=== PATIENT | female | born 1960 | race Caucasian/White ===

== ENCOUNTER 2019-02-02 16:14 | Emergency (ER) | payer BC, SELFPAY ==
[2019-02-02 16:18] VITALS: BP 126/86; PULSE 95; RESP 16; O2SAT 95; BMI 19.3
--- NOTE | 2019-02-02 16:44 | DI.RAD.S_ITS ---
PROCEDURE: XR CHEST 2V INDICATIONS: chest and back pain from fall TECHNIQUE: 2 views of the chest were acquired. COMPARISON: None. FINDINGS: Surgical changes and devices: None. Lungs and pleura: Lungs are clear. No pleural effusions or pneumothorax. Mediastinum: Mediastinal contours are normal. Heart size is normal. Bones and chest wall: No suspicious bony abnormalities. Soft tissues appear unremarkable. IMPRESSION: No acute process. Dictated by: Michelle Salguero M.D. on 02/02/2019 at 15:59 Approved by: Michelle Salguero M.D. on 02/02/2019 at 15:59
--- NOTE | 2019-02-02 18:01 | ED.FALL ---
HPI - Fall <AMBER Walters - Last Filed: 02/02/19 22:07> General Chief Complaint: Fall Stated Complaint: fall week and half ago, left side pain Time Seen by Provider: 02/02/19 17:35 Source: patient Mode of arrival: ambulatory Limitations: no limitations History of Present Illness HPI Narrative: 58-year-old female with a history of low blood sugar episodes, presents emergency department after recently from [place] complaining of having an episode of low blood sugar and falling on her couch hitting her left side. His that she has multiple blood sugar up the she usually eats something and feels much better. States that since the episode she has felt 6/10 aching left-sided pain that is worse with movement and inspiration, associated vomiting whenever she tries to eat anything. Patient states she has had multiple episodes like this in the past and has been admitted to the hospital since then, states she has had to have parental nutrition because she has been unable to eat, states this feels similar. Also states that no one was able to figure out what was causing this and that spontaneously resolved. Patient denies syncope, headaches, neck pain, chest pain, shortness of breath, change of bowel or bladder, dysuria, swelling in the legs, or dizziness. Patient denies drug or alcohol use. MD complaint: fall Fall from: standing Place fall occurred: home Loss of consciousness: none Prolonged down time: no Related Data Previous Rx's Medication Instructions Recorded cephalexin 500 mg PO BID #14 cap 02/02/19 fluconazole 100 mg PO DAILY 14 Days #14 tab 02/02/19 Allergies Allergy/AdvReac Type Severity Reaction Status Date / Time aspirin Allergy Verified 02/02/19 16:18 Penicillins Allergy Verified 02/02/19 16:18 Review of Systems <AMBER Walters - Last Filed: 02/02/19 22:07> Review of Systems REVIEW OF SYSTEMS: GENERAL: Complains of 20 lb weight loss in the past 3 weeks., see HPI a HENT: Complains of sore throat, see HPI. EYES: No loss of vision, double vision, eye pain, or irritation. CARDIOVASCULAR: No chest pain, palpitations, edema, syncope, or orthopnea. RESPIRATORY: No shortness of breath, cough, or wheeze. GASTROINTESTINAL: Complains of nausea and vomiting, see HPI. GENITOURINARY: No flank pain, urinary incontinence, hesitancy, frequency, or dysuria. MUSCULOSKELETAL: No pain, weakness, or deformities. INTEGUMENTARY: No rash, lesions, or pruritus. NEURO: No numbness, tingling, memory loss, confusion, or headaches. PSYCH: No behavior or mood changes. ENDOCRINOLOGY: No hair loss of temperature intolerance. HEMATOLOGY: No easy bruising. LYMPHATIC: No lymphadenopathy. Exam <KeylaAMBER Gregory - Last Filed: 02/02/19 22:07> Initial Vital Signs Initial Vital Signs: Vital Signs Pulse Rate 95 H 02/02/19 16:18 Respiratory Rate 16 02/02/19 16:18 Blood Pressure 126/86 02/02/19 16:18 Pulse Oximetry 95 02/02/19 16:18 PHYSICAL EXAMINATION: GENERAL: Patient appears thin, alert, and cooperative Answers questions promptly and appropriately. Vital signs noted. HENT: Normocephalic, atraumatic. Oral mucosa and pharynx is erythematous, white thick discharge appears on tongue and the back of throat which is assumed to be thrush. EYES: Conjunctiva pink, sclera white, no periorbital swelling. LYMPH: No lymphadenopathy. CHEST: Normal to inspection and without deformities. No tenderness with palpation to ribcage. CARDIOVASCULAR: S1 and S2 sounds normal. Regular rate and rhythm, no murmurs, clicks, or bruits. No pedal edema. RESPIRATORY: Normal respiratory rate, trachea midline, airway patent. No stridor, nasal flaring or accessory muscle use. Lungs are clear in all pabon without wheeze, rhonchi, or crackles. GASTROINTESTINAL: Bowel sounds normoactive. Epigastric pain with deep palpation, no masses palpated, no rebound tenderness, no bruising or erythema. On rectal exam no hemorrhoids or masses visualized are felt, Hemoccult blood test was negative with minimal stool. MUSCULOSKELETAL: Normal gait and coordination. Equal tone and mass bilaterally. EXTREMITIES: CMS intact. Moves all extremities. SKIN: Warm, dry, soft, appropriate color for ethnicity. No lesions, rashes, or wounds. NEURO: Alert and Oriented X 3. No ataxia, or sensory deficits, or cognitive issues. PSYCH: Flat affect and mood. <Luke Quintero MD - Last Filed: 02/02/19 22:35> Initial Vital Signs Initial Vital Signs: Vital Signs Pulse Rate 95 H 02/02/19 16:18 Respiratory Rate 16 02/02/19 16:18 Blood Pressure 126/86 02/02/19 16:18 Pulse Oximetry 95 02/02/19 16:18 PFSH <AMBER Walters - Last Filed: 02/02/19 22:07> Medical History Chronic vomiting (Acute) Thrush (Acute) Social History Smoking Status: Never smoker Social History Smoking Status: Never smoker Course <AMBER Walters - Last Filed: 02/02/19 22:07> Course Narrative: The course of the visit on the patient revealed more past medical history each time. She states that she had a colonoscopy in July and small polyps removed. She also states that her doctors found a small mass in her left lung that they have been biopsying without any diagnosis. Additionally see states she has been treated for thrush for the past 3 years but does not like to take her medication as she feels nauseated. Patient also states she has Zofran and Reglan at home but has not been using it for nausea. She has had 2 blood transfusions in the past for anemia of unknown cause, and has been told that her renal function has been low in the past. Patient and sitting at the bedside are talking about leaving to go back to [place] due to health problems. At this time patient also asked for narcotic medication for chronic pain, however her states that she is being followed by a pain specialist and he is handling the narcotic medication. Both myself and DR. Quintero discuss the extreme importance of follow-up for colonoscopy with the patient. Since patient has had a hard time swallowing medications an IV dose of Rocephin was given for urinary tract infection and she was sent home with pills, patient reported that her allergy to penicillins was a rash when she was 4 years old and denies anaphylaxis. Orders Ordered: ED Orders 02/02/19 16:44 CXR [XR chest 2V] Stat 02/02/19 18:15 Complete Blood Count AUTO DIFF Stat Comprehensive Metabolic Panel Stat Ethanol (ETOH) Stat Lipase Stat Thyroid Stimulating Hormone Stat 02/02/19 18:25 Urine Culture Stat Urine Microscopic Stat 02/02/19 18:58 CT abdomen pelvis wo con Stat Discontinued Medications Acetaminophen (Tylenol) 650 mg PO NOW ONE Stop: 02/02/19 18:40 Last Admin: 02/02/19 18:44 Dose: Not Given Fluconazole (Diflucan) 100 mg PO NOW ONE Stop: 02/02/19 20:48 Last Admin: 02/02/19 21:07 Dose: 100 mg Hydromorphone HCl (Dilaudid) 0.5 mg IV NOW ONE Stop: 02/02/19 20:17 Last Admin: 02/02/19 20:23 Dose: 0.5 mg Hydromorphone HCl (Dilaudid) 0.5 mg IV NOW ONE Stop: 02/02/19 21:49 Last Admin: 02/02/19 21:50 Dose: 0.5 mg Sodium Chloride (Normal Saline 0.9%) 1,000 mls @ 150 mls/hr IV CONT ARIELLE Last Infusion: 02/02/19 21:51 Dose: 0 mls/hr Infusion: 02/02/19 20:56 Dose: 999 mls/hr Infusion: 02/02/19 20:16 Dose: 999 mls/hr Admin: 02/02/19 18:40 Dose: 150 mls/hr Ceftriaxone Sodium/Dextrose (Rocephin) 1 gm in 50 mls @ 100 mls/hr IV NOW ONE Stop: 02/02/19 21:18 Last Infusion: 02/02/19 21:23 Dose: 0 mls/hr Admin: 02/02/19 20:56 Dose: 100 mls/hr Sodium Chloride (Normal Saline 0.9%) 1,000 mls @ 1,000 mls/hr IV BOLUS ONE Stop: 02/02/19 21:46 Last Infusion: 02/02/19 21:50 Dose: 0 mls/hr Admin: 02/02/19 20:56 Dose: 1,000 mls/hr Ondansetron HCl (Zofran) 4 mg IV NOW ONE Stop: 02/02/19 18:40 Last Admin: 02/02/19 18:44 Dose: 4 mg Pantoprazole Sodium (Protonix) 40 mg IV NOW ONE Stop: 02/02/19 18:59 Last Admin: 02/02/19 19:28 Dose: 40 mg Reevaluation(s) Reevaluation #1: Patient feeling slightly better after fluids and pain medication. Consultations Consultation #1: Patient staffed with Dr. Quintero who also evaluated the patient at the bedside. Vital Signs - 8 hr 02/02/19 16:18 02/02/19 18:30 02/02/19 19:36 Temperature 98.5 F Pulse Rate 95 H 115 H 115 H Respiratory Rate 16 11 L 14 Blood Pressure 126/86 Blood Pressure [Left Arm] 149/89 H 154/84 H Pulse Oximetry 95 100 100 02/02/19 20:50 02/02/19 22:05 Temperature Pulse Rate 110 H 108 H Respiratory Rate 14 14 Blood Pressure 162/86 H Blood Pressure [Left Arm] 166/87 H Pulse Oximetry 100 100 <Luke Quintero MD - Last Filed: 02/02/19 22:35> Orders Ordered: ED Orders 02/02/19 16:44 CXR [XR chest 2V] Stat 02/02/19 18:15 Complete Blood Count AUTO DIFF Stat Comprehensive Metabolic Panel Stat Ethanol (ETOH) Stat Lipase Stat Thyroid Stimulating Hormone Stat 02/02/19 18:25 Urine Culture Stat Urine Microscopic Stat 02/02/19 18:58 CT abdomen pelvis wo con Stat Discontinued Medications Acetaminophen (Tylenol) 650 mg PO NOW ONE Stop: 02/02/19 18:40 Last Admin: 02/02/19 18:44 Dose: Not Given Fluconazole (Diflucan) 100 mg PO NOW ONE Stop: 02/02/19 20:48 Last Admin: 02/02/19 21:07 Dose: 100 mg Hydromorphone HCl (Dilaudid) 0.5 mg IV NOW ONE Stop: 02/02/19 20:17 Last Admin: 02/02/19 20:23 Dose: 0.5 mg Hydromorphone HCl (Dilaudid) 0.5 mg IV NOW ONE Stop: 02/02/19 21:49 Last Admin: 02/02/19 21:50 Dose: 0.5 mg Sodium Chloride (Normal Saline 0.9%) 1,000 mls @ 150 mls/hr IV CONT ARIELLE Last Infusion: 02/02/19 21:51 Dose: 0 mls/hr Infusion: 02/02/19 20:56 Dose: 999 mls/hr Infusion: 02/02/19 20:16 Dose: 999 mls/hr Admin: 02/02/19 18:40 Dose: 150 mls/hr Ceftriaxone Sodium/Dextrose (Rocephin) 1 gm in 50 mls @ 100 mls/hr IV NOW ONE Stop: 02/02/19 21:18 Last Infusion: 02/02/19 21:23 Dose: 0 mls/hr Admin: 02/02/19 20:56 Dose: 100 mls/hr Sodium Chloride (Normal Saline 0.9%) 1,000 mls @ 1,000 mls/hr IV BOLUS ONE Stop: 02/02/19 21:46 Last Infusion: 02/02/19 21:50 Dose: 0 mls/hr Admin: 02/02/19 20:56 Dose: 1,000 mls/hr Ondansetron HCl (Zofran) 4 mg IV NOW ONE Stop: 02/02/19 18:40 Last Admin: 02/02/19 18:44 Dose: 4 mg Pantoprazole Sodium (Protonix) 40 mg IV NOW ONE Stop: 02/02/19 18:59 Last Admin: 02/02/19 19:28 Dose: 40 mg Vital Signs - 8 hr 02/02/19 16:18 02/02/19 18:30 02/02/19 19:36 Temperature 98.5 F Pulse Rate 95 H 115 H 115 H Respiratory Rate 16 11 L 14 Blood Pressure 126/86 Blood Pressure [Left Arm] 149/89 H 154/84 H Pulse Oximetry 95 100 100 02/02/19 20:50 02/02/19 22:05 Temperature Pulse Rate 110 H 108 H Respiratory Rate 14 14 Blood Pressure 162/86 H Blood Pressure [Left Arm] 166/87 H Pulse Oximetry 100 100 [facility] - Fall <AMBER Walters - Last Filed: 02/02/19 22:07> Medical Records Attestation: I reviewed the patient's medical records. Lab Data Attestation: I reviewed the patient's lab results. Result diagrams: 02/02/19 18:15 02/02/19 18:15 Lab Results 02/02/19 02/02/19 02/02/19 Range/Units 18:15 18:15 18:15 WBC 16.0 H (4.5-11.0) X10^3/uL RBC 3.25 L (4.0-5.2) X10^6/uL Hgb 10.4 L (12.0-16.0) g/dL Hct 32.3 L (36-46) % MCV 99.6 (80-100) fL MCH 32.1 (26-34) PG MCHC 32.3 (30-36) % RDW 12.9 (11.6-14.8) % Plt Count 572 H (150-400) X10^3/uL Neut % (Auto) 94.9 H (50-75) % Lymph % (Auto) 3.3 L (25-40) % [place] % (Auto) 1.7 L (3-14) % Eos % (Auto) 0.0 L (2-4) % Baso % (Auto) 0.1 (0-2) % Neut # (Auto) 25628 H (9019-5463) /uL Lymph # (Auto) 500 L (5516-8726) /uL [place] # (Auto) 300 (0-900) /uL Eos # (Auto) 0 (0-450) /uL Baso # (Auto) 0 (0-100) /uL Sodium 143 (137-145) mmol/L Potassium 4.2 (3.4-5.1) mmol/L Chloride 105 (98-107) mmol/L Carbon Dioxide 14 L (22-32) mmol/L BUN 32 H (7-17) mg/dL Creatinine 1.80 H (0.52-1.04) mg/dL Estimated GFR 28.7 L (>60) mL/min BUN/Creatinine Ratio 17.8 (6-22) Glucose 177 H (80-110) mg/dL Calcium 9.7 (8.4-10.2) mg/dL Total Bilirubin 0.5 (0.2-1.3) mg/dL AST 15 (14-36) IU/L ALT 17 (9-52) IU/L Alkaline Phosphatase 600 H (38-126) U/L Total Protein 7.8 (6.3-8.2) g/dL Albumin 3.7 (3.5-5.0) g/dL Globulin 4.1 (1.7-4.1) g/dL Albumin/Globulin Ratio 0.9 L (1.0-2.8) Lipase 265 (23-300) U/L Urine RBC (0-5/HPF) Urine WBC (0-5/HPF) Urine Bacteria (None) Ur Culture Indicated? Ethyl Alcohol < 10 mg/dL 02/02/19 Range/Units 18:25 WBC (4.5-11.0) X10^3/uL RBC (4.0-5.2) X10^6/uL Hgb (12.0-16.0) g/dL Hct (36-46) % MCV (80-100) fL MCH (26-34) PG MCHC (30-36) % RDW (11.6-14.8) % Plt Count (150-400) X10^3/uL Neut % (Auto) (50-75) % Lymph % (Auto) (25-40) % [place] % (Auto) (3-14) % Eos % (Auto) (2-4) % Baso % (Auto) (0-2) % Neut # (Auto) (2351-5612) /uL Lymph # (Auto) (1153-1844) /uL [place] # (Auto) (0-900) /uL Eos # (Auto) (0-450) /uL Baso # (Auto) (0-100) /uL Sodium (137-145) mmol/L Potassium (3.4-5.1) mmol/L Chloride (98-107) mmol/L Carbon Dioxide (22-32) mmol/L BUN (7-17) mg/dL Creatinine (0.52-1.04) mg/dL Estimated GFR (>60) mL/min BUN/Creatinine Ratio (6-22) Glucose (80-110) mg/dL Calcium (8.4-10.2) mg/dL Total Bilirubin (0.2-1.3) mg/dL AST (14-36) IU/L ALT (9-52) IU/L Alkaline Phosphatase (38-126) U/L Total Protein (6.3-8.2) g/dL Albumin (3.5-5.0) g/dL Globulin (1.7-4.1) g/dL Albumin/Globulin Ratio (1.0-2.8) Lipase (23-300) U/L Urine RBC 5-10/hpf H (0-5/HPF) Urine WBC 10-30/hpf H (0-5/HPF) Urine Bacteria Many (>30) H (None) Ur Culture Indicated? Specimen cultured Ethyl Alcohol mg/dL Urine Dip Bedside Urine Glucose Negative Bedside Urine Bilirubin - Negative Bedside Urine Ketone ++ 40 Urine Specific [place] 1.025 Bedside Urine Occult Blood +/- Bedside Urine pH 5.0 Bedside Urine Protein + 30 Bedside Urine Urobilinogen +/- 1mg Bedside Urine Nitrite - Negative Bedside Urine Leukocytes ++ [address] scan - abdomen: Radiologist's impression: [address] [address] [address] Scan Report Signed Patient: Adeline Rogers EMR#: [id number] : 8Acct:[id number] Age/Sex: 58 / FDate of Service: 02/02/19 Loc: ED Accession Number: [id number] Procedure: CT abdomen pelvis wo con Ordering Provider: Keyla Iraheta PROCEDURE: CT ABDOMEN PELVIS WO CON INDICATIONS: LUQ, epigastric pain x 1.5 wks. TECHNIQUE: Noncontrast 5 mm thick sections acquired from the diaphragms to the symphysis. 5 mm coronal and sagittal reformats were then performed. For radiation dose reduction, the following was used: automated exposure control, adjustment of mA and/or kV according to patient size. COMPARISON: None. FINDINGS: Image quality: Excellent. ABDOMEN: Lung bases: Linear opacity is present within the right base, likely atelectasis or scarring. Solid organs: Liver is normal in size. Gallbladder has been removed. Pancreas is normal in contours. Spleen is normal in size. No adrenal nodules. Kidneys are normal in size. There is a punctate nonobstructing superior left renal pole calculus. Peritoneum and bowel: Unenhanced bowel loops are nonobstructive. There is a thickened appearance of the ascending and transverse colon which is also incompletely distended. The most prominent thickening is noted in the ascending colon which is in the right upper quadrant. There is no significant appreciable pericolonic inflammatory change. No free fluid or air. There is interposition of the bowel posterior to the liver. Nodes and vessels: No retroperitoneal or mesenteric adenopathy by size criteria. Aorta and inferior vena cava are normal in caliber. Miscellaneous: No ventral hernias. PELVIS: Genitourinary: Bladder wall thickness is normal. Miscellaneous: No inguinal hernias or adenopathy. Bones: No suspicious bony lesions. No vertebral body compression fractures. IMPRESSION: 1. Thickened appearance of the ascending and transverse colon as described above. This could be secondary to incomplete distention, given lack of appreciable pericolonic inflammatory change. Marked thickening is noted within the mid ascending colon. Other etiologies such as early inflammatory changes cannot be excluded. Additionally, mass within this region cannot be definitively excluded. Exam is limited without oral or IV contrast. Followup with colonoscopy is recommended. 2. Punctate nonobstructing left renal calculus. Dictated by: Lena Kwon M.D. on 02/02/2019 at 19:44 Approved by: Lena Kwon M.D. on 02/02/2019 at 19:50 MDM Narrative Medical decision making narrative: Patient has multiple issues contributing to her symptoms. Her epigastric pain is most likely due from constant vomiting, his CT and labs did not show a specific reason for epigastric pain. It is possible that the enlarged colon wall may be contributing to patient's symptoms, she is instructed to follow up in the very near future for colonoscopy. Additionally, her urinary tract infection could be adding to her symptoms of nausea. I suspect a further decreasing renal function is due from dehydration and lack of adequate nutrition due to nausea. However, I question if there is a psychological component to why she is not taking her medications for thrush or for nausea (patient states she does not like anything in her mouth). Differential also includes malignancy, colitis, autoimmune, and HIV which I cannot rule out without further testing (such as a colonscopy). Patient does not meet admission criteria as she is able to keep fluids down in the emergency department, she lives with her has access to emergency care if her condition deteriorates, she is not septic, and she does not have acute changes rate consulting and decompensation. <Luke Quintero MD - Last Filed: 02/02/19 22:35> Lab Data Lab Results 02/02/19 02/02/19 02/02/19 Range/Units 18:15 18:15 18:15 WBC 16.0 H (4.5-11.0) X10^3/uL RBC 3.25 L (4.0-5.2) X10^6/uL Hgb 10.4 L (12.0-16.0) g/dL Hct 32.3 L (36-46) % MCV 99.6 (80-100) fL MCH 32.1 (26-34) PG MCHC 32.3 (30-36) % RDW 12.9 (11.6-14.8) % Plt Count 572 H (150-400) X10^3/uL Neut % (Auto) 94.9 H (50-75) % Lymph % (Auto) 3.3 L (25-40) % [place] % (Auto) 1.7 L (3-14) % Eos % (Auto) 0.0 L (2-4) % Baso % (Auto) 0.1 (0-2) % Neut # (Auto) 22911 H (8215-5678) /uL Lymph # (Auto) 500 L (9181-0854) /uL [place] # (Auto) 300 (0-900) /uL Eos # (Auto) 0 (0-450) /uL Baso # (Auto) 0 (0-100) /uL Sodium 143 (137-145) mmol/L Potassium 4.2 (3.4-5.1) mmol/L Chloride 105 (98-107) mmol/L Carbon Dioxide 14 L (22-32) mmol/L BUN 32 H (7-17) mg/dL Creatinine 1.80 H (0.52-1.04) mg/dL Estimated GFR 28.7 L (>60) mL/min BUN/Creatinine Ratio 17.8 (6-22) Glucose 177 H (80-110) mg/dL Calcium 9.7 (8.4-10.2) mg/dL Total Bilirubin 0.5 (0.2-1.3) mg/dL AST 15 (14-36) IU/L ALT 17 (9-52) IU/L Alkaline Phosphatase 600 H (38-126) U/L Total Protein 7.8 (6.3-8.2) g/dL Albumin 3.7 (3.5-5.0) g/dL Globulin 4.1 (1.7-4.1) g/dL Albumin/Globulin Ratio 0.9 L (1.0-2.8) Lipase 265 (23-300) U/L Urine RBC (0-5/HPF) Urine WBC (0-5/HPF) Urine Bacteria (None) Ur Culture Indicated? Ethyl Alcohol < 10 mg/dL 02/02/19 Range/Units 18:25 WBC (4.5-11.0) X10^3/uL RBC (4.0-5.2) X10^6/uL Hgb (12.0-16.0) g/dL Hct (36-46) % MCV (80-100) fL MCH (26-34) PG MCHC (30-36) % RDW (11.6-14.8) % Plt Count (150-400) X10^3/uL Neut % (Auto) (50-75) % Lymph % (Auto) (25-40) % [place] % (Auto) (3-14) % Eos % (Auto) (2-4) % Baso % (Auto) (0-2) % Neut # (Auto) (9215-7439) /uL Lymph # (Auto) (8864-8738) /uL [place] # (Auto) (0-900) /uL Eos # (Auto) (0-450) /uL Baso # (Auto) (0-100) /uL Sodium (137-145) mmol/L Potassium (3.4-5.1) mmol/L Chloride (98-107) mmol/L Carbon Dioxide (22-32) mmol/L BUN (7-17) mg/dL Creatinine (0.52-1.04) mg/dL Estimated GFR (>60) mL/min BUN/Creatinine Ratio (6-22) Glucose (80-110) mg/dL Calcium (8.4-10.2) mg/dL Total Bilirubin (0.2-1.3) mg/dL AST (14-36) IU/L ALT (9-52) IU/L Alkaline Phosphatase (38-126) U/L Total Protein (6.3-8.2) g/dL Albumin (3.5-5.0) g/dL Globulin (1.7-4.1) g/dL Albumin/Globulin Ratio (1.0-2.8) Lipase (23-300) U/L Urine RBC 5-10/hpf H (0-5/HPF) Urine WBC 10-30/hpf H (0-5/HPF) Urine Bacteria Many (>30) H (None) Ur Culture Indicated? Specimen cultured Ethyl Alcohol mg/dL Urine Dip Bedside Urine Glucose Negative Bedside Urine Bilirubin - Negative Bedside Urine Ketone ++ 40 Urine Specific [place] 1.025 Bedside Urine Occult Blood +/- Bedside Urine pH 5.0 Bedside Urine Protein + 30 Bedside Urine Urobilinogen +/- 1mg Bedside Urine Nitrite - Negative Bedside Urine Leukocytes ++ 125 Esterase Discharge Plan Departure Patient Disposition: Home Clinical Impression: Oral thrush Abdominal pain Qualifiers: Abdominal location: left upper quadrant Qualified Code(s): R10.12 - Left upper quadrant pain Urinary tract infection Qualifiers: Urinary tract infection type: acute cystitis Hematuria presence: without hematuria Qualified Code(s): N30.00 - Acute cystitis without hematuria Discharge Date/Time: 02/02/19 22:03 Interventions: ED Discharge Assessment Last Done: 02/02/19 22:05 Instructions: DI for Abdominal Pain-Adult Activity Restrictions/Additional Instructions: Thank you for entrusting me with your care today. As discussed, I am unsure the cause severe abdominal pain, however, you do have a urinary tract infection which we will treat with antibiotics (you got your first dose in the IV tonight), I have also prescribed he fluconazole for your thrush. There are some changes to your large intestine found on CT therefore a colonoscopy is recommended. Please follow-up with your primary care provider in the next week. Return to the emergency department if you have blood in your vomit, blood in your stool, fevers, uncontrollable vomiting, chest pain, shortness of breath, syncope or increasing abdominal pain. I suggest using year ondansetron and Reglan that you have at home for nausea. Prescriptions: New fluconazole 100 mg tablet 100 mg PO DAILY 14 Days Qty: 14 RF: 0 cephalexin 500 mg capsule 500 mg PO BID Qty: 14 RF: 0 <Luke Quintero MD - Last Filed: 02/02/19 22:35> Cosign ED Attending Volodymyrature Attestation: I have interviewed and evaluated this patient in conjunction with the primary provider. I agree with the assessment and treatment plan. I have emphasized to the patient that she needs to arrange local follow-up, even if a return ER visit is necessary.
--- NOTE | 2019-02-02 18:05 | ED_ITS ---
HPI - Fall <AMBER Walters - Last Filed: 02/02/19 22:07> General Chief Complaint: Fall Stated Complaint: fall week and half ago, left side pain Time Seen by Provider: 02/02/19 17:35 Source: patient Mode of arrival: ambulatory Limitations: no limitations History of Present Illness HPI Narrative: 58-year-old female with a history of low blood sugar episodes, presents emergency department after recently from [place] complaining of having an episode of low blood sugar and falling on her couch hitting her left side. His that she has multiple blood sugar up the she usually eats something and feels much better. States that since the episode she has felt 6/10 aching left-sided pain that is worse with movement and inspiration, associated vomiting whenever she tries to eat anything. Patient states she has had multiple episodes like this in the past and has been admitted to the hospital since then, states she has had to have parental nutrition because she has been unable to ea t, states this feels similar. Also states that no one was able to figure out what was causing this and that spontaneously resolved. Patient denies syncope, headaches, neck pain, chest pain, shortness of breath, change of bowel or bladder, dysuria, swelling in the legs, or dizziness. Patient denies drug or alcohol use. MD complaint: fall Fall from: standing Place fall occurred: home Loss of consciousness: none Prolonged down time: no Related Data Previous Rx's Medication Instructions Recorded cephalexin 500 mg PO BID #14 cap 02/02/19 fluconazole 100 mg PO DAILY 14 Days #14 tab 02/02/19 Allergies Allergy/AdvReac Type Severity Reaction Status Date / Time aspirin Allergy Verified 02/02/19 16:18 Penicillins Allergy Verified 02/02/19 16:18 Review of Systems <AMBER Walters - Last Filed: 02/02/19 22:07> Review of Systems REVIEW OF SYSTEMS: GENERAL: Complains of 20 lb weight loss in the past 3 weeks., see HPI a HENT: Complains of sore throat, see HPI. EYES: No loss of vision, double vision, eye pain, or irritation. CARDIOVASCULAR: No chest pain, palpitations, edema, syncope, or orthopnea. RESPIRATORY: No shortness of breath, cough, or wheeze. GASTROINTESTINAL: Complains of nausea and vomiting, see HPI. GENITOURINARY: No flank pain, urinary incontinence, hesitancy, frequency, or dysuria. MUSCULOSKELETAL: No pain, weakness, or deformities. INTEGUMENTARY: No rash, lesions, or pruritus. NEURO: No numbness, tingling, memory loss, confusion, or headaches. PSYCH: No behavior or mood changes. ENDOCRINOLOGY: No hair loss of temperature intolerance. HEMATOLOGY: No easy bruising. LYMPHATIC: No lymphadenopathy. Exam <AMBER Walters - Last Filed: 02/02/19 22:07> Initial Vital Signs Initial Vital Signs: Vital Signs Pulse Rate 95 H 02/02/19 16:18 Respiratory Rate 16 02/02/19 16:18 Blood Pressure 126/86 02/02/19 16:18 Pulse Oximetry 95 02/02/19 16:18 PHYSICAL EXAMINATION: GENERAL: Patient appears thin, alert, and cooperative Answers questions promptl y and appropriately. Vital signs noted. HENT: Normocephalic, atraumatic. Oral mucosa and pharynx is erythematous, white thick discharge appears on tongue and the back of throat which is assumed to be thrush. EYES: Conjunctiva pink, sclera white, no periorbital swelling. LYMPH: No lymphadenopathy. CHEST: Normal to inspection and without deformities. No tenderness with palpation to ribcage. CARDIOVASCULAR: S1 and S2 sounds normal. Regular rate and rhythm, no murmurs, clicks, or bruits. No pedal edema. RESPIRATORY: Normal respiratory rate, trachea midline, airway patent. No stridor, nasal flaring or accessory muscle use. Lungs are clear in all pabon without wheeze, rhonchi, or crackles. GASTROINTESTINAL: Bowel sounds normoactive. Epigastric pain with deep palpation, no masses palpated, no rebound tenderness, no bruising or erythema. On rectal exam no hemorrhoids or masses visualized are felt, Hemoccult blood test was negative with minimal stool. MUSCULOSKELETAL: Normal gait and coordination. Equal tone and mass bilaterally. EXTREMITIES: CMS intact. Moves all extremities. SKIN: Warm, dry, soft, appropriate color for ethnicity. No lesions, rashes, or wounds. NEURO: Alert and Oriented X 3. No ataxia, or sensory deficits, or cognitive issues. PSYCH: Flat affect and mood. <Luke Quintero MD - Last Filed: 02/02/19 22:35> Initial Vital Signs Initial Vital Signs: Vital Signs Pulse Rate 95 H 06/22/19 16:18 Respiratory Rate 16 02/02/19 16:18 Blood Pressure 126/86 02/02/19 16:18 Pulse Oximetry 95 02/02/19 16:18 PFSH <AMBER Walters - Last Filed: 02/02/19 22:07> Medical History Chronic vomiting (Acute) Thrush (Acute) Social History Smoking Status: Never smoker Social History Smoking Status: Never smoker Course <AMBER Walters - Last Filed: 02/02/19 22:07> Course Narrative: The course of the visit on the patient revealed more past medical history each time. She states that she had a colonoscopy in July and small polyps removed. She also states that her doctors found a small mass in her left lung that they have been biopsying without any diagnosis. Additionally see states she has been treated for thrush for the past 3 years but does not like to take her medication as she feels nauseated. Patient also states she has Zofran and Reglan at home but has not been using it for nausea. She has had 2 blood transfusions in the past for anemia of unknown cause, and has been told that her renal function has been low in the past. Patient and sitting at the bedside are talking about leaving to go back to [place] due to health problems. At this time patient also asked for narcotic medication for chronic pain, however her states that she is being followed by a pain specialist and he is handling the narcotic medication. Both myself and DR. Quintero discuss the extreme importance of follow-up for colonoscopy with the patient. Since patient has had a hard time swallowing me dications an IV dose of Rocephin was given for urinary tract infection and she was sent home with pills, patient reported that her allergy to penicillins was a rash when she was 4 years old and denies anaphylaxis. Orders Ordered: ED Orders 02/02/19 16:44 CXR [XR chest 2V] Stat 02/02/19 18:15 Complete Blood Count AUTO DIFF Stat Comprehensive Metabolic Panel Stat Ethanol (ETOH) Stat Lipase Stat Thyroid Stimulating Hormone Stat 02/02/19 18:25 Urine Culture Stat Urine Microscopic Stat 02/02/19 18:58 CT abdomen pelvis wo con Stat Discontinued Medications Acetaminophen (Tylenol) 650 mg PO NOW ONE Stop: 02/02/19 18:40 Last Admin: 02/02/19 18:44 Dose: Not Given Fluconazole (Diflucan) 100 mg PO NOW ONE Stop: 02/02/19 20:48 Last Admin: 02/02/19 21:07 Dose: 100 mg Hydromorphone HCl (Dilaudid) 0.5 mg IV NOW ONE Stop: 02/02/19 20:17 Last Admin: 02/02/19 20:23 Dose: 0.5 mg Hydromorphone HCl (Dilaudid) 0.5 mg IV NOW ONE Stop: 02/02/19 21:49 Last Admin: 02/02/19 21:50 Dose: 0.5 mg Sodium Chloride (Normal Saline 0.9%) 1,000 mls @ 150 mls/hr IV CONT ARIELLE Last Infusion: 02/02/19 21:51 Dose: 0 mls/hr Infusion: 02/02/19 20:56 Dose: 999 mls/hr Infusion: 02/02/19 20:16 Dose: 999 mls/hr Admin: 02/02/19 18:40 Dose: 150 mls/hr Ceftriaxone Sodium/Dextrose (Rocephin) 1 gm in 50 mls @ 100 mls/hr IV NOW ONE Stop: 02/02/19 21:18 Last Infusion: 02/02/19 21:23 Dose: 0 mls/hr Admin: 02/02/19 20:56 Dose: 100 mls/hr Sodium Chloride (Normal Saline 0.9%) 1,000 mls @ 1,000 mls/hr IV BOLUS ONE Stop: 02/02/19 21:46 Last Infusion: 02/02/19 21:50 Dose: 0 mls/hr Admin: 02/02/19 20:56 Dose: 1,000 mls/hr Ondansetron HCl (Zofran) 4 mg IV NOW ONE Stop: 02/02/19 18:40 Last Admin: 02/02/19 18:44 Dose: 4 mg Pantoprazole Sodium (Protonix) 40 mg IV NOW ONE Stop: 02/02/19 18:59 Last Admin: 02/02/19 19:28 Dose: 40 mg Reevaluation(s) Reevaluation #1: Patient feeling slightly better after fluids and pain medication. Consultations Consultation #1: Patient staffed with Dr. Quintero who also evaluated the patient at the bedside. Vital Signs - 8 hr 02/02/19 16:18 02/02/19 18:30 02/02/19 19:36 Temperature 98.5 F Pulse Rate 95 H 115 H 115 H Respiratory Rate 16 11 L 14 Blood Pressure 126/86 Blood Pressure [Left Arm] 149/89 H 154/84 H Pulse Oximetry 95 100 100 02/02/19 20:50 02/02/19 22:05 Temperature Pulse Rate 110 H 108 H Respiratory Rate 14 14 Blood Pressure 162/86 H Blood Pressure [Left Arm] 166/87 H Pulse Oximetry 100 100 <Luke Quintero MD - Last Filed: 02/02/19 22:35> Orders Ordered: ED Orders 02/02/19 16:44 CXR [XR chest 2V] Stat 02/02/19 18:15 Complete Blood Count AUTO DIFF Stat Comprehensive Metabolic Panel Stat Ethanol (ETOH) Stat Lipase Stat Thyroid Stimulating Hormone Stat 02/02/19 18:25 Urine Culture Stat Urine Microscopic Stat 02/02/19 18:58 CT abdomen pelvis wo con Stat Discontinued Medications Acetaminophen (Tylenol) 650 mg PO NOW ONE Stop: 02/02/19 18:40 Last Admin: 02/02/19 18:44 Dose: Not Given Fluconazole (Diflucan) 100 mg PO NOW ONE Stop: 02/02/19 20:48 Last Admin: 02/02/19 21:07 Dose: 100 mg Hydromorphone HCl (Dilaudid) 0.5 mg IV NOW ONE Stop: 02/02/19 20:17 Last Admin: 02/02/19 20:23 Dose: 0.5 mg Hydromorphone HCl (Dilaudid) 0.5 mg IV NOW ONE Stop: 02/02/19 21:49 Last Admin: 02/02/19 21:50 Dose: 0.5 mg Sodium Chloride (Normal Saline 0.9%) 1,000 mls @ 150 mls/hr IV CONT ARIELLE Last Infusion: 02/02/19 21:51 Dose: 0 mls/hr Infusion: 02/02/19 20:56 Dose: 999 mls/hr Infusion: 02/02/19 20:16 Dose: 999 mls/hr Admin: 02/02/19 18:40 Dose: 150 mls/hr Ceftriaxone Sodium/Dextrose (Rocephin) 1 gm in 50 mls @ 100 mls/hr IV NOW ONE Stop: 02/02/19 21:18 Last Infusion: 02/02/19 21:23 Dose: 0 mls/hr Admin: 02/02/19 20:56 Dose: 100 mls/hr Sodium Chloride (Normal Saline 0.9%) 1,000 mls @ 1,000 mls/hr IV BOLUS ONE Stop: 02/02/19 21:46 Last Infusion: 02/02/19 21:50 Dose: 0 mls/hr Admin: 02/02/19 20:56 Dose: 1,000 mls/hr Ondansetron HCl (Zofran) 4 mg IV NOW ONE Stop: 02/02/19 18:40 Last Admin: 02/02/19 18:44 Dose: 4 mg Pantoprazole Sodium (Protonix) 40 mg IV NOW ONE Stop: 02/02/19 18:59 Last Admin: 02/02/19 19:28 Dose: 40 mg Vital Signs - 8 hr 02/02/19 16:18 02/02/19 18:30 02/02/19 19:36 Temperature 98.5 F Pulse Rate 95 H 115 H 115 H Respiratory Rate 16 11 L 14 Blood Pressure 126/86 Blood Pressure [Left Arm] 149/89 H 154/84 H Pulse Oximetry 95 100 100 02/02/19 20:50 02/02/19 22:05 Temperature Pulse Rate 110 H 108 H Respiratory Rate 14 14 Blood Pressure 162/86 H Blood Pressure [Left Arm] 166/87 H Pulse Oximetry 100 100 MDM - Fall <AMBER Walters - Last Filed: 02/02/19 22:07> Medical Records Attestation: I reviewed the patient's medical records. Lab Data Attestation: I reviewed the patient's lab results. Result diagrams: 02/02/19 18:15 02/02/19 18:15 Lab Results 02/02/19 02/02/19 02/02/19 Range/Units 18:15 18:15 18:15 WBC 16.0 H (4.5-11.0) X10^3/uL RBC 3.25 L (4.0-5.2) X10^6/uL Hgb 10.4 L (12.0-16.0) g/dL Hct 32.3 L (36-46) % MCV 99.6 (80-100) fL MCH 32.1 (26-34) PG MCHC 32.3 (30-36) % RDW 12.9 (11.6-14.8) % Plt Count 572 H (150-400) X10^3/uL Neut % (Auto) 94.9 H (50-75) % Lymph % (Auto) 3.3 L (25-40) % Whitley % (Auto) 1.7 L (3-14) % Eos % (Auto) 0.0 L (2-4) % Baso % (Auto) 0.1 (0-2) % Neut # (Auto) 51111 H (1446-9296) /uL Lymph # (Auto) 500 L (2805-7340) /uL Whitley # (Auto) 300 (0-900) /uL Eos # (Auto) 0 (0-450) /uL Baso # (Auto) 0 (0-100) /uL Sodium 143 (137-145) mmol/L Potassium 4.2 (3.4-5.1) mmol/L Chloride 105 (98-107) mmol/L Carbon Dioxide 14 L (22-32) mmol/L BUN 32 H (7-17) mg/dL Creatinine 1.80 H (0.52-1.04) mg/dL Estimated GFR 28.7 L (>60) mL/min BUN/Creatinine Ratio 17.8 (6-22) Glucose 177 H (80-110) mg/dL Calcium 9.7 (8.4-10.2) mg/dL Total Bilirubin 0.5 (0.2-1.3) mg/dL AST 15 (14-36) IU/L ALT 17 (9-52) IU/L Alkaline Phosphatase 600 H (38-126) U/L Total Protein 7.8 (6.3-8.2) g/dL Albumin 3.7 (3.5-5.0) g/dL Globulin 4.1 (1.7-4.1) g/dL Albumin/Globulin Ratio 0.9 L (1.0-2.8) Lipase 265 (23-300) U/L Urine RBC (0-5/HPF) Urine WBC (0-5/HPF) Urine Bacteria (None) Ur Culture Indicated? Ethyl Alcohol < 10 mg/dL 02/02/19 Range/Units 18:25 WBC (4.5-11.0) X10^3/uL RBC (4.0-5.2) X10^6/uL Hgb (12.0-16.0) g/dL Hct (36-46) % MCV (80-100) fL MCH (26-34) PG MCHC (30-36) % RDW (11.6-14.8) % Plt Count (150-400) X10^3/uL Neut % (Auto) (50-75) % Lymph % (Auto) (25-40) % Whitley % (Auto) (3-14) % Eos % (Auto) (2-4) % Baso % (Auto) (0-2) % Neut # (Auto) (6031-4191) /uL Lymph # (Auto) (3594-2734) /uL Whitley # (Auto) (0-900) /uL Eos # (Auto) (0-450) /uL Baso # (Auto) (0-100) /uL Sodium (137-145) mmol/L Potassium (3.4-5.1) mmol/L Chloride (98-107) mmol/L Carbon Dioxide (22-32) mmol/L BUN (7-17) mg/dL Creatinine (0.52-1.04) mg/dL Estimated GFR (>60) mL/min BUN/Creatinine Ratio (6-22) Glucose (80-110) mg/dL Calcium (8.4-10.2) mg/dL Total Bilirubin (0.2-1.3) mg/dL AST (14-36) IU/L ALT (9-52) IU/L Alkaline Phosphatase (38-126) U/L Total Protein (6.3-8.2) g/dL Albumin (3.5-5.0) g/dL Globulin (1.7-4.1) g/dL Albumin/Globulin Ratio (1.0-2.8) Lipase (23-300) U/L Urine RBC 5-10/hpf H (0-5/HPF) Urine WBC 10-30/hpf H (0-5/HPF) Urine Bacteria Many (>30) H (None) Ur Culture Indicated? Specimen cultured Ethyl Alcohol mg/dL Urine Dip Bedside Urine Glucose Negative Bedside Urine Bilirubin - Negative Bedside Urine Ketone ++ 40 Urine Specific [place] 1.025 Bedside Urine Occult Blood +/- Bedside Urine pH 5.0 Bedside Urine Protein + 30 Bedside Urine Urobilinogen +/- 1mg Bedside Urine Nitrite - Negative Bedside Urine Leukocytes ++ [address] scan - abdomen: Radiologist's impression: [address] [address] [address] Scan Report Signed Patient: Adeline Rogers EMR#: [id number] : 8Acct:[id number] Age/Sex: 58 / FDate of Service: 02/02/19 Loc: ED Accession Number: [id number] Procedure: CT abdomen pelvis wo con Ordering Provider: Keyla Iraheta PROCEDURE: CT ABDOMEN PELVIS WO CON INDICATIONS: LUQ, epigastric pain x 1.5 wks. TECHNIQUE: Noncontrast 5 mm thick sections acquired from the diaphragms to the symphysis. 5 mm coronal and sagittal reformats were then performed. For radiation dose reduction, the following was used: automated exposure control, adjustment of mA and/or kV according to patient size. COMPARISON: None. FINDINGS: Image quality: Excellent. ABDOMEN: Lung bases: Linear opacity is present within the right base, likely atelectasis or scarring. Solid organs: Liver is normal in size. Gallbladder has been removed. Pancreas is normal in contours. Spleen is normal in size. No adrenal nodules. Kidneys are normal in size. There is a punctate nonobstructing superior left renal pole calculus. Peritoneum and bowel: Unenhanced bowel loops are nonobstructive. There is a thickened appearance of the ascending and transverse colon which is also incompletely distended. The most prominent thickening is noted in the ascending colon which is in the right upper quadrant. There is no significant appreciable pericolonic inflammatory change. No free fluid or air. There is interposition of the bowel posterior to the liver. Nodes and vessels: No retroperitoneal or mesenteric adenopathy by size criteria. Aorta and inferior vena cava are normal in caliber. Miscellaneous: No ventral hernias. PELVIS: Genitourinary: Bladder wall thickness is normal. Miscellaneous: No inguinal hernias or adenopathy. Bones: No suspicious bony lesions. No vertebral body compression fractures. IMPRESSION: 1. Thickened appearance of the ascending and transverse colon as described above. This could be secondary to incomplete distention, given lack of appreciable pericolonic inflammatory change. Marked thickening is noted within the mid ascending colon. Other etiologies such as early inflammatory changes cannot be excluded. Additionally, mass within this region cannot be definitively excluded. Exam is limited without oral or IV contrast. Followup with colonoscopy is recommended. 2. Punctate nonobstructing left renal calculus. Dictated by: Lena Kwon M.D. on 02/02/2019 at 19:44 Approved by: Lena Kwon M.D. on 02/02/2019 at 19:50 MDM Narrative Medical decision making narrative: Patient has multiple issues contributing to her symptoms. Her epigastric pain is most likely due from constant vomiting, h is CT and labs did not show a specific reason for epigastric pain. It is possible that the enlarged colon wall may be contributing to patient's symptoms, she is instructed to follow up in the very near future for colonoscopy. Additionally, her urinary tract infection could be adding to her symptoms of nausea. I suspect a further decreasing renal function is due from dehydration and lack of adequate nutrition due to nausea. However, I question if there is a psychological component to why she is not taking her medications for thrush or for nausea (patient states she does not like anything in her mouth). Differential also includes malignancy, colitis, autoimmune, and HIV which I cannot rule out without further testing (such as a colonscopy). Patient does not meet admission criteria as she is able to keep fluids down in the emergency department, she lives with her has access to emergency care if her condition deteriorates, she is not septic, and she does not have acute changes rate consulting and decompensation. <Luke Quintero MD - Last Filed: 02/02/19 22:35> Lab Data Lab Results 02/02/19 02/02/19 02/02/19 Range/Units 18:15 18:15 18:15 WBC 16.0 H (4.5-11.0) X10^3/uL RBC 3.25 L (4.0-5.2) X10^6/uL Hgb 10.4 L (12.0-16.0) g/dL Hct 32.3 L (36-46) % MCV 99.6 (80-100) fL MCH 32.1 (26-34) PG MCHC 32.3 (30-36) % RDW 12.9 (11.6-14.8) % Plt Count 572 H (150-400) X10^3/uL Neut % (Auto) 94.9 H (50-75) % Lymph % (Auto) 3.3 L (25-40) % Whitley % (Auto) 1.7 L (3-14) % Eos % (Auto) 0.0 L (2-4) % Baso % (Auto) 0.1 (0-2) % Neut # (Auto) 02243 H (9737-6185) /uL Lymph # (Auto) 500 L (8113-8415) /uL Whitley # (Auto) 300 (0-900) /uL Eos # (Auto) 0 (0-450) /uL Baso # (Auto) 0 (0-100) /uL Sodium 143 (137-145) mmol/L Potassium 4.2 (3.4-5.1) mmol/L Chloride 105 (98-107) mmol/L Carbon Dioxide 14 L (22-32) mmol/L BUN 32 H (7-17) mg/dL Creatinine 1.80 H (0.52-1.04) mg/dL Estimated GFR 28.7 L (>60) mL/min BUN/Creatinine Ratio 17.8 (6-22) Glucose 177 H (80-110) mg/dL Calcium 9.7 (8.4-10.2) mg/dL Total Bilirubin 0.5 (0.2-1.3) mg/dL AST 15 (14-36) IU/L ALT 17 (9-52) IU/L Alkaline Phosphatase 600 H (38-126) U/L Total Protein 7.8 (6.3-8.2) g/dL Albumin 3.7 (3.5-5.0) g/dL Globulin 4.1 (1.7-4.1) g/dL Albumin/Globulin Ratio 0.9 L (1.0-2.8) Lipase 265 (23-300) U/L Urine RBC (0-5/HPF) Urine WBC (0-5/HPF) Urine Bacteria (None) Ur Culture Indicated? Ethyl Alcohol < 10 mg/dL 02/02/19 Range/Units 18:25 WBC (4.5-11.0) X10^3/uL RBC (4.0-5.2) X10^6/uL Hgb (12.0-16.0) g/dL Hct (36-46) % MCV (80-100) fL MCH (26-34) PG MCHC (30-36) % RDW (11.6-14.8) % Plt Count (150-400) X10^3/uL Neut % (Auto) (50-75) % Lymph % (Auto) (25-40) % Whitley % (Auto) (3-14) % Eos % (Auto) (2-4) % Baso % (Auto) (0-2) % Neut # (Auto) (2473-2660) /uL Lymph # (Auto) (0718-0415) /uL Whitley # (Auto) (0-900) /uL Eos # (Auto) (0-450) /uL Baso # (Auto) (0-100) /uL Sodium (137-145) mmol/L Potassium (3.4-5.1) mmol/L Chloride (98-107) mmol/L Carbon Dioxide (22-32) mmol/L BUN (7-17) mg/dL Creatinine (0.52-1.04) mg/dL Estimated GFR (>60) mL/min BUN/Creatinine Ratio (6-22) Glucose (80-110) mg/dL Calcium (8.4-10.2) mg/dL Total Bilirubin (0.2-1.3) mg/dL AST (14-36) IU/L ALT (9-52) IU/L Alkaline Phosphatase (38-126) U/L Total Protein (6.3-8.2) g/dL Albumin (3.5-5.0) g/dL Globulin (1.7-4.1) g/dL Albumin/Globulin Ratio (1.0-2.8) Lipase (23-300) U/L Urine RBC 5-10/hpf H (0-5/HPF) Urine WBC 10-30/hpf H (0-5/HPF) Urine Bacteria Many (>30) H (None) Ur Culture Indicated? Specimen cultured Ethyl Alcohol mg/dL Urine Dip Bedside Urine Glucose Negative Bedside Urine Bilirubin - Negative Bedside Urine Ketone ++ 40 Urine Specific [place] 1.025 Bedside Urine Occult Blood +/- Bedside Urine pH 5.0 Bedside Urine Protein + 30 Bedside Urine Urobilinogen +/- 1mg Bedside Urine Nitrite - Negative Bedside Urine Leukocytes ++ 125 Esterase Discharge Plan Departure Patient Disposition: Home Clinical Impression: Oral thrush Abdominal pain Qualifiers: Abdominal location: left upper quadrant Qualified Code(s): R10.12 - Left upper quadrant pain Urinary tract infection Qualifiers: Urinary tract infection type: acute cystitis Hematuria presence: without hematuria Qualified Code(s): N30.00 - Acute cystitis without hematuria Discharge Date/Time: 02/02/19 22:03 Interventions: ED Discharge Assessment Last Done: 02/02/19 22:05 Instructions: DI for Abdominal Pain-Adult Activity Restrictions/Additional Instructions: Thank you for entrusting me with your care today. As discussed, I am unsure the cause severe abdominal pain, however, you do have a urinary tract infection which we will treat with antibiotics (you got your first dose in the IV tonight), I have also prescribed he fluconazole for your thrush. There are some changes to your large intestine found on CT therefore a colonoscopy is recommended. Please follow-up with your primary care provider in the next week. Return to the emergency department if you have blood in your vomit, blood in your stool, fevers, uncontrollable vomiting, chest pain, shortness of breath, syncope or increasing abdominal pain. I suggest using year ondansetron and Reglan that you have at home for nausea. Prescriptions: New fluconazole 100 mg tablet 100 mg PO DAILY 14 Days Qty: 14 RF: 0 cephalexin 500 mg capsule 500 mg PO BID Qty: 14 RF: 0 <Luke Quintero MD - Last Filed: 02/02/19 22:35> Cosign ED Attending Volodymyrature Attestation: I have interviewed and evaluated this patient in conjunction with the primary provider. I agree with the assessment and treatment plan. I have emphasized to the patient that she needs to arrange local follow-up, even if a return ER visit is necessary.
[2019-02-02 18:22] LABS: Add Manual Diff / Slide Review NO; Basophils Absolute Auto 0 /uL (0-100); Basophils Percent Auto 0.1 % (0-2); Eosinophils Absolute Auto 0 /uL (0-450); Hematocrit 32.3 % (36-46); Hemoglobin 10.4 g/dL (12.0-16.0); Lymphocytes Absolute Auto 500 /uL (1100-4500); Lymphocytes Percent Auto 3.3 % (25-40); Mean Corpuscular HGB Conc 32.3 % (30-36); Mean Corpuscular Hemoglobin 32.1 PG (26-34); Mean Corpuscular Volume 99.6 fL (80-100); Monocytes Absolute Auto 300 /uL (0-900); Monocytes Percent Auto 1.7 % (3-14); Neutrophils Absolute Auto 15200 /uL (1500-7000); Neutrophils Percent Auto 94.9 % (50-75); Platelet Count 572 X10^3/uL (150-400); Red Blood Cell Count 3.25 X10^6/uL (4.0-5.2); Red Cell Distribution Width 12.9 % (11.6-14.8)
[2019-02-02 18:30] VITALS: BP 149/89; PULSE 115; RESP 11; O2SAT 100
[2019-02-02 18:37] LABS: Alanine Aminotransferase 17 IU/L (9-52); Albumin 3.7 g/dL (3.5-5.0); Albumin Globulin Ratio 0.9 (1.0-2.8); Alkaline Phosphatase 600 U/L (38-126); Aspartate Aminotransferase 15 IU/L (14-36); BUN Creatinine Ratio 17.8 (6-22); Bilirubin Total 0.5 mg/dL (0.2-1.3); Blood Urea Nitrogen 32 mg/dL (7-17); Calcium 9.7 mg/dL (8.4-10.2); Carbon Dioxide 14 mmol/L (22-32); Chloride 105 mmol/L (98-107); Estimated Glomerular Filt Rate 28.7 mL/min (>60); Ethanol (ETOH) < 10 mg/dL; Globulin 4.1 g/dL (1.7-4.1); Glucose 177 mg/dL (80-110); HEMOLYSIS < 15 (0-50); Lipase 265 U/L (23-300); Potassium 4.2 mmol/L (3.4-5.1); Sodium 143 mmol/L (137-145); Total Protein 7.8 g/dL (6.3-8.2)
--- NOTE | 2019-02-02 18:37 | PC.NURSE ---
Helped pt in and out of bed to wheelchair to bathroom.
[2019-02-02] MEDS: SODIUM CHLORIDE 0.9% 1,000 ML 150 ML IV (18:40)
[2019-02-02] MEDS: ONDANSETRON 4 MG/2 ML INJ IV (18:44)
--- NOTE | 2019-02-02 18:58 | DI.CT.S_ITS ---
PROCEDURE: CT ABDOMEN PELVIS WO CON INDICATIONS: LUQ, epigastric pain x 1.5 wks. TECHNIQUE: Noncontrast 5 mm thick sections acquired from the diaphragms to the symphysis. 5 mm coronal and sagittal reformats were then performed. For radiation dose reduction, the following was used: automated exposure control, adjustment of mA and/or kV according to patient size. COMPARISON: None. FINDINGS: Image quality: Excellent. ABDOMEN: Lung bases: Linear opacity is present within the right base, likely atelectasis or scarring. Solid organs: Liver is normal in size. Gallbladder has been removed. Pancreas is normal in contours. Spleen is normal in size. No adrenal nodules. Kidneys are normal in size. There is a punctate nonobstructing superior left renal pole calculus. Peritoneum and bowel: Unenhanced bowel loops are nonobstructive. There is a thickened appearance of the ascending and transverse colon which is also incompletely distended. The most prominent thickening is noted in the ascending colon which is in the right upper quadrant. There is no significant appreciable pericolonic inflammatory change. No free fluid or air. There is interposition of the bowel posterior to the liver. Nodes and vessels: No retroperitoneal or mesenteric adenopathy by size criteria. Aorta and inferior vena cava are normal in caliber. Miscellaneous: No ventral hernias. PELVIS: Genitourinary: Bladder wall thickness is normal. Miscellaneous: No inguinal hernias or adenopathy. Bones: No suspicious bony lesions. No vertebral body compression fractures. IMPRESSION: 1. Thickened appearance of the ascending and transverse colon as described above. This could be secondary to incomplete distention, given lack of appreciable pericolonic inflammatory change. Marked thickening is noted within the mid ascending colon. Other etiologies such as early inflammatory changes cannot be excluded. Additionally, mass within this region cannot be definitively excluded. Exam is limited without oral or IV contrast. Followup with colonoscopy is recommended. 2. Punctate nonobstructing left renal calculus. Dictated by: Lena Kwon M.D. on 02/02/2019 at 19:44 Approved by: Lena Kwon M.D. on 02/02/2019 at 19:50
[2019-02-02 19:11] LABS: Bacteria Urine Many (>30); Culture Indicated Urine Specimen Cultured; RBC Urine 5-10/HPF (0-5/HPF); WBC Urine 10-30/HPF (0-5/HPF)
[2019-02-02] MEDS: PANTOPRAZOLE 40 MG VIAL IV (19:28)
[2019-02-02 19:36] VITALS: BP 154/84; PULSE 115; RESP 14; TEMP 36.9; O2SAT 100
--- NOTE | 2019-02-02 20:13 | PC.NURSE ---
Pt reports continue to have pain in epigastric area and back. Pt has extreme dry mouth and infusing NS at bolus at this time.
[2019-02-02] MEDS: HYDROMORPHONE 1 MG INJ 0.5 MG IV ×2 (20:23→21:50)
[2019-02-02 20:50] VITALS: BP 166/87; PULSE 110; RESP 14; O2SAT 100
[2019-02-02] MEDS: CEFTRIAXONE 1 GM/50 ML FROZ.PIGGY IV (20:56)
[2019-02-02] MEDS: SODIUM CHLORIDE 0.9% 1,000 ML 1000 ML IV (20:56)
[2019-02-02] MEDS: FLUCONAZOLE 100 MG TABLET PO (21:07)
[2019-02-02 22:05] VITALS: BP 162/86; PULSE 108; RESP 14; O2SAT 100
[2019-02-02 22:51] LABS: Thyroid Stimulating Hormone 9.13 uIU/mL (0.47-4.68)
== END 2019-02-02 22:03 | disposition home or self-care (01) ==
PROVIDERS: Emergency Provider Nurse Practitioner
DX: B37.0 Candidal stomatitis (principal); R10.12 Left upper quadrant pain; N30.00 Acute cystitis without hematuria; W19.XXXA Unspecified fall, initial encounter
CPT/HCPCS: 36591; 71046; 74176; 80053; 80320; 81003; 81015; 83690; 84443; 85025; 87077; 87086; 87186; 96361; 96365; 96375; 96376; 99284; 99285; C9113; J1170; J2405